=== PATIENT | male | born 1985 ===

== ENCOUNTER 2022-06-26 14:11 | Emergency (ER) | payer BC, SELFPAY ==
--- NOTE | ~2022-06-26 | US_ITS ---
Testicular ultrasound with doppler. Indication: Pain. Technique: Real-time sonography the scrotum was performed. Color flow Doppler and Doppler spectral an alysis were performed. Findings: The testes are homogeneous in echotexture bilaterally. There is no evidence of an intrates ticular mass. The right testis measures 4.4 x 2.3 x 2.8 cm and the left 4.4 x 1.9 x 2.8 cm. There is color-flow seen to both testes. Arterial and venous spectral waveforms are seen in both testes. There is no sonographic evidence of torsion. The head of the epididymis is visualized bilaterally and is within normal limits. Minimal bilateral hydroceles present. Impression: Minimal bilateral hydroceles, otherwise unremarkable exam. Reviewed, dictated and finalized at [facility]. [employer] APPLICATOR Impression: Minimal bilateral hydroceles, otherwise unremarkable exam.
[2022-06-26 14:13] VITALS: BP 156/64; PULSE 74; RESP 16; TEMP 36.6; O2SAT 100
--- NOTE | 2022-06-26 14:40 | ED.MALEGU ---
HPI - Male Genitourinary General Chief complaint: Urogenital-Male Stated complaint: SCROTAL PAIN Time Seen by Provider: 06/26/22 14:14 Source: patient and RN notes reviewed History of Present Illness HPI Narrative: Patient presents emergency department from home for right testicular pain. Patient states symptoms initially began approximately 5 days ago. States the pain is located over the right lower testicle and states it is described as dull and achy in nature and states it feels similar to your previous episode of epididymitis he had after he had a vasectomy performed by Dr. Ashley. States this occurred several years ago. Patient states that the symptoms continued and he had noted some mild lower back pain as well that he described as achy had gone to the urgent care today and have been recommended to come to the ER for ultrasound states he was started on Bactrim and is taken a dose of Bactrim this morning he denies any fevers or chills abdominal pain nausea vomiting patient does note that he has had some increased frequency of urination but denies pain with urination Related Data Allergies Allergy/AdvReac Type Severity Reaction Status Date / Time house dust Allergy Unknown Verified 01/07/10 10:51 ENVIRONMENTAL Allergy Mild Uncoded 11/25/09 06:18 Review of Systems Review of Systems: Gen.: Denies fevers or chills Respiratory: Denies shortness of breath or cough CV: Denies chest pain or palpitations GI: Denies abdominal pain nausea, emesis see HPI Musculoskeletal: Tolerance mild low back achiness Neuro: Denies headache Skin: Denies rash Except as documented, all other systems reviewed and negative [facility] Past Medical History Medical History (Updated 06/26/22 @ 15:21 by Bennie Angeles DO) Patient denies significant medical history Surgical History Surgical History (Updated 06/26/22 @ 14:42 by Bennie Angeles DO) H/O vasectomy Family History Family History (Updated 01/31/12 @ 09:29 by DOCTOR UNKNOWN) Mother Patient's mother is in good health Father Patient's father is in good health Sibling Patient's brother is in good health Social History Social History Smoking status: Never smoker Alcohol intake: current Exam Narrative: APPEARANCE: No acute distress, nontoxic, resting in bed EYES: EOMI HEENT: Normocephalic, atraumatic, OMM RESPIRATORY: No respiratory distress ABDOMINAL: Soft, nontender, nondistended, no rebound or guarding : No scrotal swelling or erythema tenderness over the right poserior inferior testicle with mild swelling noted internally at this area there is no swelling of the scrotum itself left testicle is nontender to palpation Back: Midline lumbar tenderness to palpation, no flank tenderness MUSCULOSKELETAl: Moves all extremities. No clubbing, cyanosis or edema. NEURO: Awake and alert. Following commands, speech normal, no focal deficits SKIN:: Warm, dry. No rashes lesions or abrasions PSYCHIATRIC: Normal affect/mood, Course Course Emergency Course: Discussed with patient results of workup and diagnosis. Discussed need for follow-up with primary care, proper use of medication, and reasons to return to the emergency department. Patient understands and agrees to current treatment plan Vital Signs Vital signs: Vital Signs Temperature 97.8 F 06/26/22 14:13 Pulse Rate 74 06/26/22 14:13 Respiratory Rate 16 06/26/22 14:13 Blood Pressure 156/64 H 06/26/22 14:13 Pulse Oximetry 100 06/26/22 14:13 Oxygen Delivery Room Air 06/26/22 14:13 Temperature 97.8 F 06/26/22 14:13 Pulse Rate 74 06/26/22 14:13 Respiratory Rate 16 06/26/22 14:13 Blood Pressure 156/64 H 06/26/22 14:13 Pulse Oximetry 100 06/26/22 14:13 Oxygen Delivery Room Air 06/26/22 14:13 MDM - Male Genitourinary MDM Narrative Medical decision making narrative: Patient presents with testicular tenderness over
[2022-06-26 14:58] LABS: Appearance Urine Clear (Clear); Bilirubin Urine Negative (Negative); Blood Urine Negative (Negative); Color Urine Yellow (Yellow); Glucose Urine UA Negative (Negative); Ketones Urine Negative (Negative); Leukocyte Esterase Ur Negative LEU/UL (Negative); Nitrate Urine Negative (Negative); Protein Urine Negative (Negative); Specific Grav Ur 1.014 (1.001-1.035); Urobilinogen Urine 0.2 mg/dL (<2.0); pH Urine 6.5 (5.0-9.0)
[2022-06-26 15:04] LABS: Add Urine Microscopic? NO
== END 2022-06-26 15:43 | disposition home or self-care (01) ==
PROVIDERS: Emergency Provider Emergency Medicine; PCP Family Medicine
DX: N45.1 Epididymitis (principal)
CPT/HCPCS: 76870; 81003; 93976; 99284

== ENCOUNTER 2023-04-22 05:03 | Emergency (ER) | payer BC, SELFPAY ==
--- NOTE | ~2023-04-22 | XR_ITS ---
Left Shoulder Technique: AP and scapular Y views were obtained. Clinical History: Injury Findings: No fracture or dislocation is seen. Osseous alignment is anatomic. The glenohumeral and acr omioclavicular joint spaces are preserved. Soft tissues are unremarkable, aside from calcified left h ilar lymph node. Impression: Unremarkable left shoulder radiographs. Reviewed, dictated and finalized at [facility]. [employer] ENGINEER Impression: Unremarkable left shoulder radiographs.
[2023-04-22 05:06] VITALS: BP 147/67; PULSE 57; RESP 16; TEMP 36.9; O2SAT 100
--- NOTE | 2023-04-22 07:18 | ED.GENADULT ---
HPI - General Adult General Chief complaint: Extremity Injury, Upper Stated complaint: shoulder pain Time Seen by Provider: 04/22/23 07:04 History of Present Illness HPI narrative: Patient is a 37-year-old male who presents ER with concerns for pectoralis injury. Patient was doing bench press last night when he felt a sudden sharp pain to his left back. He has full range of motion of his shoulder and biceps. When he flexes his PACs he does have some bulging on the left side when compared to the right. There is also bruising over the proximal humerus where the pectoralis major would typically insert. Patient has no numbness or tingling. No additional concerns. Related Data Allergies Allergy/AdvReac Type Severity Reaction Status Date / Time house dust Allergy Unknown Verified 01/07/10 10:51 ENVIRONMENTAL Allergy Mild Uncoded 11/25/09 06:18 Review of Systems Musculoskeletal: Musculoskeletal: Denies arthralgias, Denies joint swelling and Reports muscle cramps Integumentary/Breasts: Skin/Breast: Denies pruritus and Denies erythema Comments: +bruising Neurologic: Denies focal weakness and Denies numbness PMFSH Past Medical History Medical History (Updated 04/22/23 @ 07:24 by Bacilio Burton MD) Patient denies significant medical history Surgical History Surgical History (Updated 06/26/22 @ 14:42 by Bennie Angeles DO) H/O vasectomy Family History Family History (Updated 01/31/12 @ 09:29 by DOCTOR UNKNOWN) Mother Patient's mother is in good health Father Patient's father is in good health Sibling Patient's brother is in good health Social History Social History Smoking status: Never smoker Alcohol intake: current Exam Narrative: GENERAL: Well-appearing, well-nourished, and in no acute distress. HEAD: Normocephalic, atraumatic. CHEST: Asymmetry to the pectoralis muscles with the left lateral pec being abnormal. EXTREMITIES: Normal range of motion. No edema. Normal strength. Bruising over the proximal humerus /proximal biceps and distal deltoid region. No tenderness in this region. SKIN: Warm, dry, no rash. NEURO: Alert and oriented x3. PSYCH: Normal mood and affect. Course Course Emergency Course: Imaging unremarkable. Recommend follow-up with Orthopedic surgery. May require surgical repair as patient is very active in weightlifting. Encouraged cessation in upper body lifting until evaluation. Vital Signs Vital signs: Vital Signs Temperature 98.4 F 04/22/23 05:06 Pulse Rate 57 L 04/22/23 05:06 Respiratory Rate 16 04/22/23 05:06 Blood Pressure 147/67 H 04/22/23 05:06 Pulse Oximetry 100 04/22/23 05:06 Oxygen Delivery Room Air 04/22/23 05:06 Temperature 98.4 F 04/22/23 05:06 Pulse Rate 57 L 04/22/23 05:06 Respiratory Rate 16 04/22/23 05:06 Blood Pressure 147/67 H 04/22/23 05:06 Pulse Oximetry 100 04/22/23 05:06 Oxygen Delivery Room Air 04/22/23 05:06 Medical Decision Making Vital Signs Vital Signs: Vital Signs Temperature 98.4 F 04/22/23 05:06 Pulse Rate 57 L 04/22/23 05:06 Respiratory Rate 16 04/22/23 05:06 Blood Pressure 147/67 H 04/22/23 05:06 Pulse Oximetry 100 04/22/23 05:06 Oxygen Delivery Room Air 04/22/23 05:06 Temperature 98.4 F 04/22/23 05:06 Pulse Rate 57 L 04/22/23 05:06 Respiratory Rate 16 04/22/23 05:06 Blood Pressure 147/67 H 04/22/23 05:06 Pulse Oximetry 100 04/22/23 05:06 Oxygen Delivery Room Air 04/22/23 05:06 Imaging Data Radiologist's impression: ITS Impressions Shoulder X-Ray 04/22/23 07:27 Impression: Unremarkable left shoulder radiographs. Discharge Plan Discharge Clinical Impression: Rupture of pectoralis major muscle Patient Disposition: Home, Self-Care Condition: Stable Additional Instructions: It is felt you have a rupture of your pectorals
== END 2023-04-22 08:00 | disposition home or self-care (01) ==
LOC: ANHED 07:42
PROVIDERS: Emergency Provider Emergency Medicine; PCP Family Medicine
DX: S29.011A Strain of muscle and tendon of front wall of thorax, initial encounter (principal); X50.0XXA Overexertion from strenuous movement or load, initial encounter; Y93.B3 Activity, free weights
CPT/HCPCS: 73030; 99283